=== PATIENT | female | born 1950 | race Two or more races ===

== ENCOUNTER 2022-05-06 11:25 | Outpatient (CLI) | payer MEDICARE, OTHER | END 2022-05-06 23:59 | disposition home or self-care (01) | LOC: MSC 11:25 | PROVIDERS: ATTEND Internal Medicine | DX: E11.22 Type 2 diabetes mellitus with diabetic chronic kidney disease (principal); I12.9 Hypertensive chronic kidney disease with stage 1 through stage 4 chronic kidney disease, or unspecified chronic kidney disease; N18.32 Chronic kidney disease, stage 3b; E87.1 Hypo-osmolality and hyponatremia; E78.5 Hyperlipidemia, unspecified; M10.9 Gout, unspecified; N32.81 Overactive bladder; Z79.899 Other long term (current) drug therapy ==